=== PATIENT | male | born 1955 | race Two or more races ===

== ENCOUNTER → 2017-10-21 | Outpatient (CLI) | payer OTHER ==
[~2017-10-21] MED LIST: ACETAMINOOPHEN-1 TAB PO; AMBIEN10 MG PO; AMLODIPINE BESYL5 MG PO; ATIVAN1 M1 PO; CIPRO750 MG PO; CIPROFLOXACIN750 MG PO; CLONAZEPAM1 MG PO; CLONAZEPAM2 MG PO; Colace 100MG PO; DOCUSATE SODIU100 MG PO; LOSARTAN POTASS50 MG PO; MELATONIN5 M2 PO; METHYLPRED4 MG/DOSE- PO; NEURONTIN PO; NEURONTIN800 MG PO; TYLENOL-CODEINE1 TAB PO
== END | disposition home or self-care (01) ==
LOC: LAB 12:28
DX: N40.0 Benign prostatic hyperplasia without lower urinary tract symptoms (principal); R31.0 Gross hematuria; R82.79 Other abnormal findings on microbiological examination of urine; Z51.81 Encounter for therapeutic drug level monitoring

== ENCOUNTER → 2017-10-21 | Outpatient (CLI) | payer OTHER | END | disposition home or self-care (01) | LOC: TOM 10:15 | DX: N40.0 Benign prostatic hyperplasia without lower urinary tract symptoms (principal); R31.0 Gross hematuria | CPT/HCPCS: 74178; Q9965 ==

== ENCOUNTER 2017-10-23 07:30 | Inpatient (IN) | payer OTHER ==
[~2017-10-23] VITALS: Ht 185.4 cm; Wt 127.5 kg
== END 2017-10-28 19:11 | disposition home or self-care (01) | DRG 684 ==
LOC: ER 07:30 → SEC-K 13:09 → SURG 13:09 → O/R 15:04 → SURG 18:51
PROC: 0T768DZ Dilation of Right Ureter with Intraluminal Device, Via Natural or Artificial Opening Endoscopic (ICD-10-PCS; principal; 2017-10-23)
PROC: B54CZZZ Ultrasonography of Left Lower Extremity Veins (ICD-10-PCS; 2017-10-23)
DX: N17.2 Acute kidney failure with medullary necrosis (principal); R31.0 Gross hematuria; I10 Essential (primary) hypertension

== ENCOUNTER 2017-11-09 13:05 | Outpatient (CLI) | payer OTHER | END 2017-11-09 13:27 | disposition home or self-care (01) | LOC: LAB 13:05 | DX: R31.0 Gross hematuria (principal); D68.311 Acquired hemophilia; D68.0 Von Willebrand disease ==

== ENCOUNTER 2017-12-28 11:15 | Inpatient (IN) | payer OTHER ==
[~2017-12-28] VITALS: Ht 185.4 cm; Wt 129.7 kg
[2018-01-07] MEDS ORDERED: DOCUSATE SODIU100 MG PO (10:01)
[2018-01-07] MEDS ORDERED: ACETAMINOPHEN-1 EAC2 PO (10:02)
[2018-01-07] MEDS ORDERED: CLONAZEPAM1 MG PO (10:02)
[2018-01-07] MEDS ORDERED: KRISTALOSE10 GM PO (12:28)
[2018-01-07] MEDS ORDERED: NEURONTIN800 MG PO (12:28)
== END 2018-01-07 16:48 | disposition home or self-care (01) | DRG 472 ==
LOC: O/R 01-06 04:30 → SURH 01-06 07:00 → PED 01-06 15:40
PROVIDERS: Orthopaedic Surgery Orthopaedic Surgery of the Spine
PROC: 0RG20A0 Fusion of 2 or more Cervical Vertebral Joints with Interbody Fusion Device, Anterior Approach, Anterior Column, Open Approach (ICD-10-PCS; 2018-01-06)
PROC: 0RT30ZZ Resection of Cervical Vertebral Disc, Open Approach (ICD-10-PCS; principal; 2018-01-06 07:00)
DX: M47.22 Other spondylosis with radiculopathy, cervical region (principal); D68.0 Von Willebrand disease; M50.123 Cervical disc disorder at C6-C7 level with radiculopathy

== ENCOUNTER 2019-03-20 13:36 | Inpatient (IN) | payer OTHER ==
[~2019-03-20] VITALS: Ht 185.4 cm; Wt 122.5 kg
[~2019-03-20 13:36] MED LIST changes: +ACETAMINOPHEN-1 EAC2 PO; +KRISTALOSE10 GM PO
[2019-03-21] MEDS ORDERED: TRAZODONE HCL50 MG PO (09:00)
[2019-03-21] MEDS ORDERED: DICLOFENAC SODI50 MG PO (09:00)
[2019-03-21] MEDS ORDERED: CLONAZEPAM2 MG PO (09:00)
[2019-03-21] MEDS ORDERED: RESTORIL30 MG PO (09:01)
[2019-03-21] MEDS ORDERED: ATIVAN1 MG PO (09:01)
[2019-03-28] MEDS ORDERED: CEFDINIR300 MG PO (16:57)
== END 2019-03-28 17:52 | disposition home or self-care (01) | DRG 682 ==
LOC: ER 13:36 → SURH 22:10 → MEDJ 03-21 00:08 → SURH 03-21 00:29 → MEDJ 03-24 12:28
PROVIDERS: ADMIT Internal Medicine
PROC: BW21ZZZ Computerized Tomography (CT Scan) of Abdomen and Pelvis (ICD-10-PCS; 2019-03-20)
PROC: BB24ZZZ Computerized Tomography (CT Scan) of Bilateral Lungs (ICD-10-PCS; 2019-03-23)
PROC: 3E0F7GC Introduction of Other Therapeutic Substance into Respiratory Tract, Via Natural or Artificial Opening (ICD-10-PCS; 2019-03-23)
PROC: 30233N1 Transfusion of Nonautologous Red Blood Cells into Peripheral Vein, Percutaneous Approach (ICD-10-PCS; 2019-03-25)
PROC: 0BBC3ZX Excision of Right Upper Lung Lobe, Percutaneous Approach, Diagnostic (ICD-10-PCS; principal; 2019-03-26)
DX: N17.8 Other acute kidney failure (principal); A41.9 Sepsis, unspecified organism; Q61.01 Congenital single renal cyst; N39.0 Urinary tract infection, site not specified; N10 Acute pyelonephritis; R31.0 Gross hematuria; R91.8 Other nonspecific abnormal finding of lung field; B96.29 Other Escherichia coli [E. coli] as the cause of diseases classified elsewhere; E86.0 Dehydration; E87.8 Other disorders of electrolyte and fluid balance, not elsewhere classified; D63.8 Anemia in other chronic diseases classified elsewhere; N17.2 Acute kidney failure with medullary necrosis; K57.30 Diverticulosis of large intestine without perforation or abscess without bleeding; M50.320 Other cervical disc degeneration, mid-cervical region, unspecified level; M54.42 Lumbago with sciatica, left side; I10 Essential (primary) hypertension; Z85.46 Personal history of malignant neoplasm of prostate; Z08 Encounter for follow-up examination after completed treatment for malignant neoplasm

== ENCOUNTER 2019-05-12 08:30 | Outpatient (CLI) | payer OTHER ==
[~2019-05-12 08:30] MED LIST changes: +ATIVAN1 MG PO; +CEFDINIR300 MG PO; +DICLOFENAC SODI50 MG PO; +RESTORIL30 MG PO; +TRAZODONE HCL50 MG PO
== END 2019-05-12 08:33 | disposition home or self-care (01) ==
LOC: RAD 08:30
DX: C90.30 Solitary plasmacytoma not having achieved remission (principal); D47.2 Monoclonal gammopathy

== ENCOUNTER → 2019-05-19 | Outpatient (CLI) | payer OTHER | END | disposition home or self-care (01) | LOC: NUCLEAR 07:00 | DX: C90.30 Solitary plasmacytoma not having achieved remission (principal); D47.2 Monoclonal gammopathy | CPT/HCPCS: 78816; A9552 ==

== ENCOUNTER 2023-07-27 19:00 | Emergency (ER) | payer OTHER ==
[~2023-07-27] VITALS: Ht 185.4 cm; Wt 108.9 kg
[2023-07-27] MEDS ORDERED: REVLIMID15 MG PO (20:05)
[2023-07-27] MEDS ORDERED: DARZALEX100 MG/5 M IV (20:05)
[2023-07-27 21:47] LABS: ALBUMIN 3.4 gm/dL (3.4-5.0); BILIRUBIN TOTAL 0.57 mg/dL (0.3-1.2); CALCIUM 7.6 mg/dL (8.5-10.1); CREATININE SERUM 1.46 mg/dL (0.70-1.30); GFR 47.87; GLOBULINA 3.1 G/DL (2.4-3.5); POTASSIUM 3.7 mEq/L (3.5-5.1); TOTAL PROTEIN 6.5 gm/dL (6.4-8.2)
[2023-07-27 23:28] LABS: HEMATOCRIT 31.9 % (39.0-48.0); HEMOGLOBIN 10.9 g/dL (13-16.00); MEAN CELL VOLUME 93.1 fL (80.0-100.00); MEAN CORPUSCULAR HEMOGLOBIN 31.9 pg (27.00-32.0); MEAN CORPUSCULAR HGB CONC 34.3 g/dl (32.0-36.0); PLATELET COUNT 114 K/uL (150-450); RED BLOOD COUNT 3.43 M/uL (4.00-6.00); RED CELL DISTRIBUTION WIDTH 15.4 % (11.5-14.5)
== END 2023-07-28 00:07 | disposition home or self-care (01) ==
LOC: ER 19:01
PROVIDERS: General Practice
DX: B34.9 Viral infection, unspecified (principal); Z88.6 Allergy status to analgesic agent; Z88.8 Allergy status to other drugs, medicaments and biological substances
CPT/HCPCS: 36415; 96365; 96366; 99284; J2405; J2930; J3490; J7042

== ENCOUNTER 2024-05-14 17:46 | Inpatient (IN) | payer OTHER ==
[~2024-05-14] VITALS: Ht 185.4 cm; Wt 108.9 kg
[~2024-05-14 17:46] MED LIST changes: +DARZALEX100 MG/5 M IV; +REVLIMID15 MG PO
--- NOTE | 2024-05-14 17:56 | NUR ---
PTE ALERTA Y ORIENTADO X3 REFIERE TENER DIARREAS Y DOLOR EN TODO EL LADO CARLEEN DESDE HACE 3 MCELROY. SE MIDEN SV Y SE UBICA.
[2024-05-14] MEDS ORDERED: HYOSCYAMINE SULFATE 0.125 MG TAB.SUBL SL ONE (19:15)
[2024-05-14] MEDS ORDERED: 0.9 % SODIUM CHLORIDE 1,000 ML IV SCH ×2 (19:30→23:30)
[2024-05-14] MEDS ORDERED: ORPHENADRINE CITRATE 30 MG/ML AMPUL IM ONE (19:30)
--- NOTE | 2024-05-14 19:38 | NUR ---
SE ORIENTA PTE SOBRE TX MEDICO EL CUAL REFIERE ENTENDER.SE LE EXTRAEN MUESTRAS BAJO MEDIDAS ASEPTICAS,SE CANALIZA Y SE ADMINISTRAN MEDICAMENTOS SEBASTIAN ORDEN MEDICA.SE UBICA EN KEENAN CON BARANDAS ELEVADAS.
[2024-05-14 20:10] LABS: HEMOGLOBIN 10.7 g/dL (13-16.00); MEAN CELL VOLUME 94.1 fL (80.0-100.00); MEAN CORPUSCULAR HEMOGLOBIN 32.5 pg (27.00-32.0); MEAN CORPUSCULAR HGB CONC 34.6 g/dl (32.0-36.0); PLATELET COUNT 178 K/uL (150-450); RED CELL DISTRIBUTION WIDTH 15.3 % (11.5-14.5)
[2024-05-14 20:28] LABS: ALBUMIN 3.3 gm/dL (3.4-5.0); BILIRUBIN TOTAL 1.09 mg/dL (0.3-1.2); CALCIUM 7.4 mg/dL (8.5-10.1); CREATININE SERUM 1.71 mg/dL (0.70-1.30); GFR 39.77; GLOBULINA 3.3 G/DL (2.4-3.5); TOTAL PROTEIN 6.6 gm/dL (6.4-8.2)
[2024-05-14 20:33] LABS: POTASSIUM 2.32 mEq/L (3.5-5.1)
[2024-05-14] MEDS ORDERED: POTASSIUM CHLORIDE IN 0.9%NACL 1,000 ML IV ONE (20:45)
[2024-05-14 23:08] LABS: PH,URINE 6.5 (5.0-8.0); URINE APPEARANCE Clear; URINE BILIRRUBIN Negative (NEGATIVE); URINE BLOOD Trace; URINE COLOR Yellow; URINE GLUCOSE Negative (NEGATIVE); URINE KETONE Negative (NEGATIVE); URINE LEUKOCYTE Negative; URINE NITRATE Negative; URINE PROTEIN 30 (NEGATIVE); URINE UROBILINOGEN 0.2 E.U./dl
[2024-05-14 23:12] LABS: URINE BACTERIA 56.6 uL (0.0-1933); URINE EPITHELIAL CELLS 29.9 uL (0.0-38.8); URINE RBC 18.3 uL (0.0-20.8); URINE WBC 10.6 uL (0.0-23.2)
[2024-05-14 23:32] LABS: URINE CAST 0.45 uL (0.0-1.40)
[2024-05-14] MEDS ORDERED: PANTOPRAZOLE SODIUM 40 MG in 0.9 % SODIUM CHLORIDE 8 ML IV PUSH SCH (23:40)
[2024-05-14] MEDS ORDERED: CIPROFLOXACIN IN 5 % DEXTROSE 200 ML IV SCH (23:41)
[2024-05-14] MEDS ORDERED: TEMAZEPAM 15 MG CAPSULE PO SCH (23:45)
[2024-05-15] MEDS ORDERED: METRONIDAZOLE/SODIUM CHLORIDE 100 ML IV SCH (01:00)
[2024-05-15 02:38] VITALS: BP 106/6; O2SAT 99
[2024-05-15 08:09] VITALS: BP 130/60; O2SAT 98
[2024-05-15 08:13] LABS: HEMATOCRIT 28.1 % (39.0-48.0); MEAN CELL VOLUME 92.2 fL (80.0-100.00); MEAN CORPUSCULAR HEMOGLOBIN 32.7 pg (27.00-32.0); MEAN CORPUSCULAR HGB CONC 35.4 g/dl (32.0-36.0); PLATELET COUNT 145 K/uL (150-450); RED BLOOD COUNT 3.05 M/uL (4.00-6.00); RED CELL DISTRIBUTION WIDTH 15.1 % (11.5-14.5)
[2024-05-15 08:41] LABS: ALBUMIN 2.9 gm/dL (3.4-5.0); BILIRUBIN TOTAL 1.21 mg/dL (0.3-1.2); CREATININE SERUM 1.64 mg/dL (0.70-1.30); GFR 41.74; GLOBULINA 2.4 G/DL (2.4-3.5); PHOSPHOROUS 2.8 mg/dL (2.5-4.9); TOTAL PROTEIN 5.3 gm/dL (6.4-8.2)
[2024-05-15 08:54] LABS: ERYTHROCYTE SEDIMENTATION RATE 65 mm/hr
[2024-05-15] MEDS ORDERED: METOPROLOL SUCCINATE 25 MG TAB.SR.24H PO SCH (09:00)
[2024-05-15] MEDS ORDERED: FF) FLECAINIDE ACETATE 50MG TAB PO SCH (09:00)
[2024-05-15 09:33] LABS: CALCIUM 6.5 mg/dL (8.5-10.1); POTASSIUM 2.36 mEq/L (3.5-5.1)
[2024-05-15 09:34] LABS: MAGNESIUM 0.9 mg/dL (1.8-2.4)
[2024-05-15 10:28] LABS: C-REACTIVE PROTEIN 3.3 MG/DL (0.00-0.29)
[2024-05-15 10:50] LABS: ob NEGATIVE (NEGATIVE)
[2024-05-15] MEDS ORDERED: CALCIUM GLUCONATE 100 MG/ML VIAL IV ONE (12:45)
[2024-05-15] MEDS ORDERED: MAGNESIUM SULFATE IN WATER 4 GM/100 ML PIGGYBACK IV NR (13:00)
[2024-05-15] MEDS ORDERED: POTASSIUM CHLORIDE IN WATER 40 MEQ/100 ML PIGGYBAG IV SCH ×2 (13:00→16:00)
[2024-05-15] MEDS ORDERED: MEPERIDINE HCL/PF 25 MG/ML VIAL IV PRN (15:15)
[2024-05-15] MEDS ORDERED: ORPHENADRINE CITRATE 30 MG/ML AMPUL IV SCH (17:00)
[2024-05-15 17:14] VITALS: BP 124/70
[2024-05-16 04:45] VITALS: BP 111/62; O2SAT 98
[2024-05-16 06:36] LABS: HEMATOCRIT 27.2 % (39.0-48.0); HEMOGLOBIN 9.7 g/dL (13-16.00); MEAN CORPUSCULAR HEMOGLOBIN 32.7 pg (27.00-32.0); MEAN CORPUSCULAR HGB CONC 35.6 g/dl (32.0-36.0); PLATELET COUNT 145 K/uL (150-450); RED BLOOD COUNT 2.96 M/uL (4.00-6.00); RED CELL DISTRIBUTION WIDTH 15.4 % (11.5-14.5)
[2024-05-16 07:39] LABS: ALBUMIN 2.9 gm/dL (3.4-5.0); BILIRUBIN TOTAL 1.06 mg/dL (0.3-1.2); CALCIUM 6.7 mg/dL (8.5-10.1); CREATININE SERUM 1.39 mg/dL (0.70-1.30); GFR 50.52; GLOBULINA 2.4 G/DL (2.4-3.5); MAGNESIUM 1.7 mg/dL (1.8-2.4); TOTAL PROTEIN 5.3 gm/dL (6.4-8.2)
[2024-05-16 08:09] LABS: POTASSIUM 2.17 mEq/L (3.5-5.1)
[2024-05-16 10:11] VITALS: BP 126/51; O2SAT 97
[2024-05-16] MEDS ORDERED: CALCIUM GLUCONATE 100 MG/ML VIAL IV SCH (12:00)
[2024-05-16] MEDS ORDERED: MAGNESIUM SULFATE/D5W 100 ML IV NR (12:00)
[2024-05-16] MEDS ORDERED: POTASSIUM PHOS,M-BASIC-D-BASIC 3 MM/ML VIAL IV SCH (13:00)
[2024-05-16 15:41] LABS: FERRITIN 272.9 NG/ML (26-388)
[2024-05-16] MEDS ORDERED: SODIUM CHLORIDE 0.45 % 1,000 ML IV SCH (16:00)
[2024-05-16] MEDS ORDERED: SOD FERRIC GLUC COMPLX/SUCROSE 62.5 MG/5 ML AMPUL IV SCH (17:00)
[2024-05-16] MEDS ORDERED: VITAMIN B COMPLEX 1 EACH PO SCH (17:00)
[2024-05-16] MEDS ORDERED: Cyanocobalamin/Mecobalamin 1 TAB.SL SL SCH (17:00)
[2024-05-16] MEDS ORDERED: MULTIVIT INFUSN,ADULT 4,VIT K 10 ML VIAL IV SCH (17:00)
[2024-05-16] MEDS ORDERED: LACTOBACILLUS ACIDOPHILUS 1 CAP CAP PO SCH (17:00)
[2024-05-16 17:49] VITALS: BP 138/67
[2024-05-17 01:05] VITALS: BP 127/58; O2SAT 99
[2024-05-17 07:17] LABS: ALBUMIN 2.6 gm/dL (3.4-5.0); BILIRUBIN TOTAL 0.66 mg/dL (0.3-1.2); CREATININE SERUM 1.3 mg/dL (0.70-1.30); GFR 54.57; GLOBULINA 2.2 G/DL (2.4-3.5); HEMATOCRIT 26.6 % (39.0-48.0); HEMOGLOBIN 9.3 g/dL (13-16.00); MAGNESIUM 1.5 mg/dL (1.8-2.4); MEAN CELL VOLUME 93.1 fL (80.0-100.00); MEAN CORPUSCULAR HEMOGLOBIN 32.6 pg (27.00-32.0); PHOSPHOROUS 2.9 mg/dL (2.5-4.9); PLATELET COUNT 140 K/uL (150-450); RED BLOOD COUNT 2.85 M/uL (4.00-6.00); RED CELL DISTRIBUTION WIDTH 15.2 % (11.5-14.5); TOTAL PROTEIN 4.8 gm/dL (6.4-8.2)
[2024-05-17 07:40] LABS: CALCIUM 6.5 mg/dL (8.5-10.1); POTASSIUM 2.26 mEq/L (3.5-5.1)
[2024-05-17] MEDS ORDERED: levoFLOXacin IN DEXTROSE 5 % 5 MG/ML PIGGYBAG IV SCH (09:00)
[2024-05-17 09:33] VITALS: BP 140/70
[2024-05-17 13:00] LABS: PLATELET ESTIMATE NORMAL (NORMAL)
[2024-05-17] MEDS ORDERED: POTASSIUM CHLORIDE 20MEQ/100ML H2O PB IV SCH (13:00)
[2024-05-17 14:07] LABS: FOLIC ACID 11.1 ng/ml (4.78-20)
[2024-05-17] MEDS ORDERED: MAGNESIUM SULFATE IN WATER 50 ML IV NR (16:00)
[2024-05-17 16:56] VITALS: BP 121/63; O2SAT 100
[2024-05-17] MEDS ORDERED: SPIRONOLACTONE 25 MG TABLET PO SCH (17:00)
[2024-05-17] MEDS ORDERED: CEFTRIAXONE SODIUM 2,000 MG VIAL IV SCH (21:00)
[2024-05-18 01:37] VITALS: BP 138/70; O2SAT 99
[2024-05-18 09:51] VITALS: BP 128/61; O2SAT 99
[2024-05-18 16:49] VITALS: BP 116/66; O2SAT 99
[2024-05-18] MEDS ORDERED: SUCRALFATE 1 G TABLET PO SCH (17:00)
[2024-05-18] MEDS ORDERED: CYANOCOBALAMIN (VITAMIN B-12) 1,000 MCG/ML VIAL IM SCH (17:00)
[2024-05-18] MEDS ORDERED: FAMOTIDINE/PF 20 MG in 0.9 % SODIUM CHLORIDE 8 ML IV PUSH SCH (17:00)
[2024-05-18 17:10] LABS: ALBUMIN 2.7 gm/dL (3.4-5.0); BILIRUBIN TOTAL 0.46 mg/dL (0.3-1.2); CREATININE SERUM 1.28 mg/dL (0.70-1.30); GFR 55.56; GLOBULINA 2.3 G/DL (2.4-3.5)
[2024-05-18 17:27] LABS: CALCIUM 6.4 mg/dL (8.5-10.1)
[2024-05-18 17:28] LABS: POTASSIUM 2.51 mEq/L (3.5-5.1)
[2024-05-18] MEDS ORDERED: POTASSIUM PHOS,M-BASIC-D-BASIC 45mM/15ml VIAL IV SCH (18:00)
[2024-05-18] MEDS ORDERED: DEXTROSE 5 % IN WATER 1,000 ML IV SCH (18:45)
[2024-05-19 07:29] LABS: HEMATOCRIT 25.5 % (39.0-48.0); HEMOGLOBIN 9.1 g/dL (13-16.00); MEAN CELL VOLUME 91.2 fL (80.0-100.00); MEAN CORPUSCULAR HEMOGLOBIN 32.6 pg (27.00-32.0); MEAN CORPUSCULAR HGB CONC 35.7 g/dl (32.0-36.0); PLATELET COUNT 169 K/uL (150-450); RED CELL DISTRIBUTION WIDTH 15.3 % (11.5-14.5)
[2024-05-19 07:57] LABS: ALBUMIN 2.5 gm/dL (3.4-5.0); BILIRUBIN TOTAL 0.42 mg/dL (0.3-1.2); CREATININE SERUM 1.27 mg/dL (0.70-1.30); GFR 56.06; GLOBULINA 2.2 G/DL (2.4-3.5); MAGNESIUM 1.6 mg/dL (1.8-2.4); PHOSPHOROUS 4.7 mg/dL (2.5-4.9); TOTAL PROTEIN 4.7 gm/dL (6.4-8.2)
[2024-05-19 08:21] LABS: CALCIUM 6.3 mg/dL (8.5-10.1)
[2024-05-19 08:22] LABS: POTASSIUM 2.63 mEq/L (3.5-5.1)
[2024-05-19 09:28] VITALS: BP 148/84; O2SAT 96
[2024-05-19] MEDS ORDERED: MAGNESIUM SULFATE IN WATER 2 GM/50 ML PIGGYBAG IV NR (11:00)
[2024-05-19] MEDS ORDERED: MAGNESIUM SULFATE IN WATER 50 ML IV NR (14:00)
[2024-05-19] MEDS ORDERED: POTASSIUM CHLORIDE 20MEQ/100ML H2O PB IV SCH (16:00)
[2024-05-19] MEDS ORDERED: CALCIUM GLUCONATE 100 MG/ML VIAL IV SCH (17:00)
[2024-05-19 19:59] VITALS: BP 134/73; O2SAT 97
[2024-05-19] MEDS ORDERED: KETOROLAC TROMETHAMINE 30 MG VIAL IV SCH (21:00)
[2024-05-19] MEDS ORDERED: ORPHENADRINE CITRATE 30 MG/ML AMPUL IV SCH (21:00)
[2024-05-20 02:27] VITALS: BP 150/75; O2SAT 100
[2024-05-20 06:42] LABS: ALBUMIN 2.6 gm/dL (3.4-5.0); BILIRUBIN TOTAL 0.38 mg/dL (0.3-1.2); CALCIUM 7.5 mg/dL (8.5-10.1); CREATININE SERUM 1.24 mg/dL (0.70-1.30); GFR 57.63; GLOBULINA 2.2 G/DL (2.4-3.5); MAGNESIUM 2.3 mg/dL (1.8-2.4); PHOSPHOROUS 3.9 mg/dL (2.5-4.9); TOTAL PROTEIN 4.8 gm/dL (6.4-8.2)
[2024-05-20 07:03] LABS: POTASSIUM 2.89 mEq/L (3.5-5.1)
[2024-05-20 10:32] VITALS: BP 129/61; O2SAT 93
[2024-05-20] MEDS ORDERED: POTASSIUM CHLORIDE 20MEQ/100ML H2O PB IV SCH (13:00)
[2024-05-20] MEDS ORDERED: SPIRONOLACTONE 25 MG TABLET PO SCH (17:00)
[2024-05-20 19:56] VITALS: BP 123/70; O2SAT 100
[2024-05-21 03:57] VITALS: BP 119/69; O2SAT 97
[2024-05-21 05:20] VITALS: BP 125/58
[2024-05-21 08:53] LABS: ALBUMIN 2.5 gm/dL (3.4-5.0); BILIRUBIN TOTAL 0.3 mg/dL (0.3-1.2); CALCIUM 7.4 mg/dL (8.5-10.1); CREATININE SERUM 1.55 mg/dL (0.70-1.30); GFR 44.55; GLOBULINA 2.2 G/DL (2.4-3.5); MAGNESIUM 1.7 mg/dL (1.8-2.4); POTASSIUM 3.24 mEq/L (3.5-5.1); TOTAL PROTEIN 4.7 gm/dL (6.4-8.2)
[2024-05-21 08:56] VITALS: BP 125/70; O2SAT 100
[2024-05-21 10:20] LABS: K URINE 24 HR 18.4 mmol/24H (25-125)
[2024-05-21] MEDS ORDERED: POTASSIUM BICARBONATE/CIT AC 25 MEQ TABLET.EFF PO SCH (13:00)
[2024-05-21 18:21] VITALS: BP 160/84; O2SAT 100
[2024-05-22 01:20] VITALS: BP 116/50; O2SAT 100
[2024-05-22 07:39] LABS: ALBUMIN 2.7 gm/dL (3.4-5.0); CALCIUM 7.6 mg/dL (8.5-10.1); CREATININE SERUM 1.26 mg/dL (0.70-1.30); GFR 56.58; MAGNESIUM 1.5 mg/dL (1.8-2.4); PHOSPHOROUS 2.7 mg/dL (2.5-4.9); POTASSIUM 3.21 mEq/L (3.5-5.1)
[2024-05-22 08:00] LABS: HEMATOCRIT 25.1 % (39.0-48.0); MEAN CELL VOLUME 92.6 fL (80.0-100.00); MEAN CORPUSCULAR HEMOGLOBIN 33.1 pg (27.00-32.0); MEAN CORPUSCULAR HGB CONC 35.8 g/dl (32.0-36.0); PLATELET COUNT 169 K/uL (150-450); RED BLOOD COUNT 2.71 M/uL (4.00-6.00); RED CELL DISTRIBUTION WIDTH 15.5 % (11.5-14.5)
[2024-05-22 11:27] VITALS: BP 128/68; O2SAT 100
[2024-05-22 12:04] LABS: campy Final report (.)
[2024-05-22 17:54] VITALS: BP 160/79; O2SAT 98
[2024-05-23] MEDS ORDERED: TEMAZEPAM 15 MG CAPSULE PO STA (00:04)
[2024-05-23 01:42] VITALS: BP 146/80; O2SAT 100
[2024-05-23] MEDS ORDERED: MAGNESIUM SULFATE 1,000 MG in 0.9 % SODIUM CHLORIDE 50 ML IV ONE (02:15)
[2024-05-23] MEDS ORDERED: POTASSIUM CHLORIDE IN WATER 40 MEQ/100 ML PIGGYBAG IV ONE (02:15)
[2024-05-23 08:32] VITALS: BP 145/73
[2024-05-23] MEDS ORDERED: LOPERAMIDE HCL 2 MG CAPSULE PO PRN (13:00)
[2024-05-23 15:44] LABS: ALBUMIN 2.7 gm/dL (3.4-5.0); BILIRUBIN TOTAL 0.35 mg/dL (0.3-1.2); CALCIUM 6.9 mg/dL (8.5-10.1); CREATININE SERUM 1.05 mg/dL (0.70-1.30); GFR 69.83; GLOBULINA 1.9 G/DL (2.4-3.5); TOTAL PROTEIN 4.6 gm/dL (6.4-8.2)
[2024-05-23 16:36] LABS: MAGNESIUM 1.3 mg/dL (1.8-2.4)
[2024-05-23 16:37] LABS: PHOSPHOROUS 1.6 mg/dL (2.5-4.9); POTASSIUM 2.96 mEq/L (3.5-5.1)
[2024-05-23 19:04] VITALS: BP 156/76
[2024-05-23] MEDS ORDERED: POTASSIUM CHLORIDE 20MEQ/100ML H2O PB IV SCH (20:00)
[2024-05-23] MEDS ORDERED: TEMAZEPAM 15 MG CAPSULE PO SCH (21:00)
[2024-05-23 23:38] LABS: URINE APPEARANCE Clear; URINE BILIRRUBIN Negative (NEGATIVE); URINE BLOOD Negative; URINE COLOR Yellow; URINE GLUCOSE Negative (NEGATIVE); URINE KETONE Negative (NEGATIVE); URINE LEUKOCYTE Negative; URINE NITRATE Negative; URINE PROTEIN Negative (NEGATIVE); URINE UROBILINOGEN 0.2 E.U./dl
[2024-05-23 23:42] LABS: URINE EPITHELIAL CELLS 6.6 uL (0.0-38.8); URINE RBC 3.5 uL (0.0-20.8); URINE WBC 1.9 uL (0.0-23.2)
[2024-05-24 00:25] VITALS: BP 142/65; O2SAT 97
[2024-05-24 00:55] LABS: URINE BACTERIA 3.7 uL (0.0-1933); URINE CAST 0.15 uL (0.0-1.40)
[2024-05-24 07:10] LABS: BILIRUBIN TOTAL 0.44 mg/dL (0.3-1.2); CALCIUM 8.1 mg/dL (8.5-10.1); CREATININE SERUM 1.14 mg/dL (0.70-1.30); GFR 63.5; GLOBULINA 2.1 G/DL (2.4-3.5); POTASSIUM 3.5 mEq/L (3.5-5.1); TOTAL PROTEIN 5.1 gm/dL (6.4-8.2)
[2024-05-24 08:00] VITALS: BP 148/50
[2024-05-24 18:19] VITALS: BP 161/62
[2024-05-25 00:21] VITALS: BP 126/71; O2SAT 95
[2024-05-25 06:47] LABS: HEMATOCRIT 27.7 % (39.0-48.0); HEMOGLOBIN 9.6 g/dL (13-16.00); MEAN CELL VOLUME 94.8 fL (80.0-100.00); MEAN CORPUSCULAR HEMOGLOBIN 32.8 pg (27.00-32.0); MEAN CORPUSCULAR HGB CONC 34.6 g/dl (32.0-36.0); PLATELET COUNT 169 K/uL (150-450); RED BLOOD COUNT 2.92 M/uL (4.00-6.00)
[2024-05-25 07:10] LABS: ALBUMIN 2.9 gm/dL (3.4-5.0); BILIRUBIN TOTAL 0.43 mg/dL (0.3-1.2); CALCIUM 7.6 mg/dL (8.5-10.1); CREATININE SERUM 1.16 mg/dL (0.70-1.30); GFR 62.24; GLOBULINA 2.2 G/DL (2.4-3.5); MAGNESIUM 1.5 mg/dL (1.8-2.4); PHOSPHOROUS 2.5 mg/dL (2.5-4.9); POTASSIUM 3.13 mEq/L (3.5-5.1); TOTAL PROTEIN 5.1 gm/dL (6.4-8.2)
[2024-05-25 09:36] VITALS: BP 138/68; O2SAT 100
[2024-05-25] MEDS ORDERED: MAGNESIUM SULFATE IN WATER 50 ML IV NR (14:00)
[2024-05-25 15:04] LABS: C ur 10.4 mg/dL (Not Estab.); Magne u 8.4 mg/dL (Not Estab.); Magnesio 24 193.2 mg/24 hr (12.0-293.0); Phos ur 51.1 mg/dL (Not Estab.)
[2024-05-25] MEDS ORDERED: POTASSIUM CHLORIDE IN WATER 100 ML IV NR (16:00)
[2024-05-25 18:54] VITALS: BP 128/54
[2024-05-26 02:02] VITALS: BP 146/75; O2SAT 99
[2024-05-26 09:14] VITALS: BP 138/66; O2SAT 100
[2024-05-27] MEDS ORDERED: CYANOCOBALAMIN (VITAMIN B-12) 1,000 MCG/ML VIAL IM SCH (09:00)
== END 2024-05-26 20:07 | disposition home or self-care (01) | DRG 871 ==
LOC: ER 17:46 → MEDI 05-15 00:53 → MEDJ 05-18 20:24
PROVIDERS: Emergency Medicine; Internal Medicine; Internal Medicine Hematology & Oncology; Internal Medicine Infectious Disease; ADMIT Internal Medicine; ATTEND Internal Medicine
PROC: 02HV33Z Insertion of Infusion Device into Superior Vena Cava, Percutaneous Approach (ICD-10-PCS; 2024-05-18)
PROC: BW21ZZZ Computerized Tomography (CT Scan) of Abdomen and Pelvis (ICD-10-PCS; principal; 2024-05-23)
DX: A41.9 Sepsis, unspecified organism (principal); D61.810 Antineoplastic chemotherapy induced pancytopenia; N17.8 Other acute kidney failure; C90.00 Multiple myeloma not having achieved remission; D61.818 Other pancytopenia; K52.9 Noninfective gastroenteritis and colitis, unspecified; M51.16 Intervertebral disc disorders with radiculopathy, lumbar region; M50.30 Other cervical disc degeneration, unspecified cervical region; I10 Essential (primary) hypertension; E87.5 Hyperkalemia; E83.51 Hypocalcemia; E83.39 Other disorders of phosphorus metabolism; E83.42 Hypomagnesemia; D69.6 Thrombocytopenia, unspecified

== ENCOUNTER 2024-06-19 14:50 | Emergency (ER) | payer OTHER ==
[~2024-06-19] VITALS: Ht 185.4 cm; Wt 108.9 kg
[2024-06-19] MEDS ORDERED: DEXAMETHASONE SODIUM PHOSPHATE 4 MG/ML VIAL IM STA (15:40)
[2024-06-19] MEDS ORDERED: ORPHENADRINE CITRATE 30 MG/ML AMPUL IM STA (15:41)
[2024-06-19] MEDS ORDERED: DIPHENHYDRAMINE HCL 50 MG/ML VIAL 1ML IM STA (15:41)
== END 2024-06-19 18:24 | disposition home or self-care (01) ==
LOC: ER 14:52
DX: M54.2 Cervicalgia (principal); R51.9 Headache, unspecified; Z88.0 Allergy status to penicillin; Z88.5 Allergy status to narcotic agent; Z88.6 Allergy status to analgesic agent
CPT/HCPCS: 70450; 96372; 99284; J1100; J1200; J2360

== ENCOUNTER 2024-07-11 19:53 | Emergency (ER) | payer OTHER ==
[~2024-07-11] VITALS: Ht 188 cm; Wt 90.7 kg
[2024-07-12] MEDS ORDERED: CLINDAMYCIN PHOSPHATE 150 MG/ML (600mg) IM STA (04:48)
[2024-07-12] MEDS ORDERED: LIDOCAINE HCL 4% Topic SOLUTION TOP STA (04:49)
== END 2024-07-12 05:21 | disposition home or self-care (01) ==
LOC: ER 19:55
DX: J06.9 Acute upper respiratory infection, unspecified (principal); Z88.0 Allergy status to penicillin; Z88.5 Allergy status to narcotic agent; Z88.6 Allergy status to analgesic agent
CPT/HCPCS: 96372; 99282; J3490